=== PATIENT | male | born 1995 | race Caucasian/White ===

== ENCOUNTER 2020-12-22 17:01 | Emergency (ER) | payer BC, SELFPAY ==
[2020-12-22 17:12] VITALS: BP 121/71; PULSE 61; RESP 16; TEMP 37.3; O2SAT 100
--- NOTE | 2020-12-22 17:31 | ED.SKABFB ---
HPI - Skin/Abscess/Foreign Bdy General Chief complaint: Skin/Abscess/Foreign Body Stated complaint: SPLINTER Source: patient Mode of arrival: ambulatory Limitations: no limitations History of Present Illness HPI narrative: Patient is a 25-year-old male who presents complaining of pain to left index finger. Patient reports that he feels he has a splinter in base of left index finger and redness and swelling started approximately 3 days ago. He reports tenderness with palpation. He denies taking any [id number] medication for pain. Denies numbness or tingling in the finger. 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 He denies any significant medical history. Related Data Home Medications Medication Instructions Recorded Confirmed amoxicillin 12/22/20 Allergies Allergy/AdvReac Type Severity Reaction Status Date / Time No Known Allergies Allergy Verified 02/17/15 11:02 Review of Systems Review of Systems: Narrative: CONSTITUTIONAL: Denies fever, chills, or sweats. EYES: Denies visual changes, redness, or discharge. ENT: Denies rhinorrhea, congestion, sore throat, or otalgia. CARDIOVASCULAR: Denies chest pain, palpitations, or edema. RESPIRATORY: Denies cough or dyspnea. GASTROINTESTINAL: Denies abdominal pain, nausea, vomiting, or diarrhea. GENITOURINARY: Denies dysuria or hematuria. SKIN: Redness, tenderness and swelling to base of left index finger MUSCULOSKELETAL: Denies back pain, joint pain, or myalgia. NEUROLOGIC: Denies headache, numbness, dizziness, or weakness. PSYCHIATRIC: Denies anxiety or depression. [facility] Past Medical History Medical History No significant past medical history Surgical History Surgical History No significant past surgical history Family History Family History Mother Family history of irritable bowel syndrome Social History Social History Smoking status: Never smoker Alcohol intake: never Substance use: never Living arrangements: with friend(s) Exam Narrative: Exam Narrative: GENERAL: Well-appearing, well-nourished, and in no acute distress. HEAD: Normocephalic, atraumatic. EYES: No redness or drainage. ENT: Mucous membranes pink and moist. CHEST: No respiratory distress. HEART: Regular rate and rhythm. EXTREMITIES: Normal range of motion. SKIN: Erythema, edema, warmth and tenderness with palpation noted to base of left index finger. Distal sensation intact, good capillary refill NEURO: No focal deficits. Alert and oriented x3. Gait steady. PSYCH: Normal affect. No signs of depression or anxiety. Course Vital Signs Vital signs: Vital Signs Temperature 37.3 C 12/22/20 17:12 Pulse Rate 61 12/22/20 17:12 Respiratory Rate 16 12/22/20 17:12 Blood Pressure 121/71 12/22/20 17:12 Pulse Oximetry 100 12/22/20 17:12 Temperature 37.3 C 12/22/20 17:12 Pulse Rate 61 12/22/20 17:12 Respiratory Rate 16 12/22/20 17:12 Blood Pressure 121/71 12/22/20 17:12 Pulse Oximetry 100 12/22/20 17:12 Reviewed MDM - Skin/Abscess/Foreign Bdy MDM Narrative Medical decision making narrative: Small splinter visualized at base of left finger, removed with forceps. Patient appears to have surrounding cellulitis, patient to be started on clindamycin at this time. Discussed plan of care with patient and needs for additional evaluation and follow-up care. Patient is stable for discharge home with outpatient follow-up as needed Differential Diagnosis Differential diagnosis: Likely abscess of skin or subcutaneous tissue, viral exanthem, cellulitis and contact dermatitis Critical Care Time Critical Care Time Critical Care Time: No Discharge
== END 2020-12-22 17:35 | disposition home or self-care (01) ==
PROVIDERS: Emergency Provider Nurse Practitioner; PCP Internal Medicine
DX: S61.241A Puncture wound with foreign body of left index finger without damage to nail, initial encounter (principal); W45.8XXA Other foreign body or object entering through skin, initial encounter; L03.012 Cellulitis of left finger
CPT/HCPCS: 99203; G0463

== ENCOUNTER 2021-05-07 12:07 | Outpatient (CLI) | payer BC, SELFPAY ==
[2021-05-07 13:40] LABS: Liquefaction Semen Complete in 30 min. (<30 minutes); Semen Color Opaque (Grey-opaque); Semen Immotility 20 %; Semen Non-Progressive Motility 30 %; Semen Progressive Motility 50 % (>32); Semen Total Motility 80 (>40% (PM+NP)); Semen Viscosity Not Increased (Not Increa.)
[2021-05-07 13:41] LABS: Semen Morphology Result to Follow; Sperm Count 20.5 Mil/mL (60-150 million/mL)
[2021-05-09 13:45] LABS: Fructose, Semen 300 mg/dL (150-600)
== END 2021-05-07 12:08 | disposition home or self-care (01) ==
LOC: CHSIMG 12:10
PROVIDERS: Visit Provider Obstetrics & Gynecology
DX: Z30.09 Encounter for other general counseling and advice on contraception (principal)
CPT/HCPCS: 82757; 88160; 89320

== ENCOUNTER 2021-05-31 18:09 | Emergency (ER) | payer BC, SELFPAY ==
--- NOTE | ~2021-05-31 | XR_ITS ---
EXAMINATION: XR wrist LT min 3V DATE: 05/31/2021 18:28 INDICATION: Posterior left wrist pain post fall one day prior. TECHNIQUE: Posteroanterior, ulnar deviation, oblique, and lateral views of the left wrist were obtain ed. COMPARISON: none FINDINGS: Alignment is normal. No fracture. Joint spaces are normal. Mild soft tissue swelling dorsal to the ca rpus. IMPRESSION: 1. No osseous abnormality. Reviewed, dictated and finalized at location A. IMPRESSION: 1. No osseous abnormality.
[2021-05-31 18:12] VITALS: BP 121/68; PULSE 70; RESP 16; TEMP 37.2; O2SAT 99
--- NOTE | 2021-05-31 18:37 | ED.UPPEXIN ---
HPI - Extremity Injury (Upper) General Chief Complaint: Extremity Injury, Upper Stated Complaint: left hand injury Time Seen by Provider: 05/31/21 18:15 Source: patient, RN notes reviewed and old records reviewed Mode of arrival: ambulatory Limitations: no limitations History of Present Illness HPI narrative: 25 year old male who presents to [facility] care with complaints of injury to his left wrist yesterday. He states that he was kicking a hacky sack and his feet flew out from under him and he tried to catch himself with his left hand with injury to the left dorsal wrist area. Patient has increase in pain to left wrist with any movement of his left wrist, trace amount of swelling noted to dorsal wrist area, patient is able to make a fist and able to spread fingers on own power. Patient does have pain to his left wrist with flexion and extension. MD complaint: injury to: left and wrist Onset (ago): day(s) (1) Other Extremity Injury: Left: wrist Other injuries: none Handedness: right Related Data Home Medications Medication Instructions Recorded Confirmed No Home Medications 05/31/21 05/31/21 Allergies Allergy/AdvReac Type Severity Reaction Status Date / Time No Known Allergies Allergy Verified 05/31/21 18:28 Review of Systems Review of Systems: CONSTITUTIONAL: Denies fever, chills, or sweats. EYES: Denies visual changes, redness, or discharge. ENT: Denies rhinorrhea, congestion, sore throat, or otalgia. CARDIOVASCULAR: Denies chest pain, palpitations, or edema. RESPIRATORY: Denies cough or dyspnea. GASTROINTESTINAL: Denies abdominal pain, nausea, vomiting, or diarrhea. GENITOURINARY: Denies dysuria or hematuria. SKIN: Denies rash or itching. MUSCULOSKELETAL: Denies back pain,positive for left wrist area pain, or myalgia. NEUROLOGIC: Denies headache, numbness, or weakness. PSYCHIATRIC: Denies anxiety or depression. All systems reviewed & are unremarkable except as noted in HPI and below [facility] Past Medical History Medical History (Updated 06/01/21 @ 00:02 by Agusto Damon) Ear infection Citlalli Mas infection No significant past medical history Sore throat Surgical History Surgical History (Updated 05/31/21 @ 19:16 by Sariah Wells NP) Hx of tonsillectomy No significant past surgical history Family History Family History (Updated 05/31/21 @ 19:17 by Sariah Wells NP) Mother Family history of irritable bowel syndrome Fibromyalgia Social History Social History (Updated 05/31/21 @ 19:16 by Sariah Wells NP) Smoking status: Current every day smoker Alcohol intake: current Alcohol use details: social Substance use: current Substance use type: marijuana Last use: occasional Living arrangements: with family Gender identity (if verbalized by the patient): Male Comments At time of signature, agree with nursing past medical, surgical, social and family history. There is no relevant family history pertinent to the presenting complaint Exam Narrative: GENERAL: Well-appearing, well-nourished, and in no acute distress. HEAD: Normocephalic, atraumatic. EYES: PERRLA and EOMI. ENT: Nares clear, no rhinorrhea or epistaxis. Mucous membranes moist. NECK: Supple.no lymphadenopathy CHEST: Clear to auscultation. No respiratory distress. HEART: Regular rate and rhythm. No murmur heard. Normal peripheral pulses. ABDOMEN: Soft, nontender, nondistended, normal active bowel sounds. EXTREMITIES: Normal range of motion.mild edema to dorsal aspect of left wrist, increase in pain to left wrist with flexion and hyperextension, able to make fist and moves all fingers well, denies any tingling or numbness to his fingers, strong left radial pulse. SKIN: Warm, dry, no rash. NEURO: No focal deficits. Alert and oriented x3. Course Vital Signs Vital signs: Vital Signs Temperature 37.2 C 05/31/21 18:12 Pulse Rate 70 05/31/21 18:12 Respiratory Rate 16 05/31/21 18:12 Blood Press
== END 2021-05-31 18:55 | disposition home or self-care (01) ==
PROVIDERS: Emergency Provider Registered Nurse
DX: S63.502A Unspecified sprain of left wrist, initial encounter (principal); S66.912A Strain of unspecified muscle, fascia and tendon at wrist and hand level, left hand, initial encounter; W19.XXXA Unspecified fall, initial encounter; F17.200 Nicotine dependence, unspecified, uncomplicated
CPT/HCPCS: 73110; 99213; G0463